=== PATIENT | male | born 1940 | race Caucasian/White ===

== ENCOUNTER 2021-01-09 16:19 | Emergency (ER) | payer MEDICARE ==
[~2021-01-09] VITALS: Ht 167.6 cm; Wt 59.9 kg
== END 2021-01-09 17:00 | disposition home or self-care (01) ==
LOC: ER 16:29
DX: R10.30 Lower abdominal pain, unspecified (principal); Z85.05 Personal history of malignant neoplasm of liver; Z96.651 Presence of right artificial knee joint; R94.31 Abnormal electrocardiogram [ECG] [EKG]
CPT/HCPCS: 93005; 99283